=== PATIENT | male | born 1995 | race Caucasian/White ===

== ENCOUNTER 2018-11-25 01:26 | Inpatient (IN) | payer OTHER ==
[2018-11-25] MEDS ORDERED: Succinylcholine Chloride 20 MG/ML 10 ml SYRINGE FS ONE (01:34)
[2018-11-25 01:45] LABS: #Basophils 0.1 thou/uL (0.0-0.2); #Monocytes 0.4 thou/uL (0.11-0.59); #Neutrophils 4.1 thou/uL (1.40-6.50); %Basophils 1.1 % (0.0-1.0); %Eosinophils 0.4 % (0.0-10.0); %Lymphocytes 30.5 % (21.0-51.0); %Monocytes 5.5 % (0.0-10.0); %Neutrophils 62.5 % (42.0-75.0); Hemoglobin 13.1 g/dL (14.0-18.0); Mean Corpuscular HGB CONC 35.2 g/dL (32.0-36.0); Mean Corpuscular Hemoglobin 31.1 pg (27.0-31.0); Mean Corpuscular Volume 88.3 fL (78.0-98.0); Mean Platelet Volume 7.1 fL (7.4-10.4); Platelet Count 216 thou/uL (130-400); RBC Distribution Width 11.5 % (11.5-14.5); Red Blood Cell (RBC) Count 4.19 mill/uL (4.70-6.10); White Blood Cell (WBC) Count 6.6 thou/uL (4.8-10.8)
[2018-11-25] MEDS ORDERED: Midazolam HCl 2 mg/2 ml Vial ONE (01:46)
[2018-11-25] MEDS ORDERED: Fentanyl 100 MCG/2 ML VIAL ONE (01:49)
[2018-11-25] MEDS ORDERED: fentaNYL Citrate/PF 2,000 MCG in Sodium Chloride 0.9% 60 ML IV SCH (01:49)
[2018-11-25 01:52] LABS: INR-International Normal Ratio 1.1; PTT 26.7 SEC (22.9-36.1); Prothrombin Time 14.5 SEC (12.0-14.7)
[2018-11-25 02:01] LABS: ALT (SGPT) 14 U/L (8-55); AST (SGOT) 22 U/L (5-34); Albumin 4.4 g/dL (3.5-5.0); Alkaline Phosphatase 41 U/L (40-150); Anion Gap 13 mmol/L (10-20); BUN (Urea Nitrogen) 9 mg/dL (8.9-20.6); Bilirubin, Total 0.3 mg/dL (0.2-1.2); Calc. Creatinine Clearance 0 mL/min (70-130); Carbon Dioxide 22 mmol/L (22-29); Chloride 104 mmol/L (98-107); Estimated GFR-MDRD Greater than 90; Globulin 2.6 g/dL (2.4-3.5); Glucose 111 mg/dL (70-105); Sodium 136 mmol/L (136-145)
[2018-11-25 02:03] LABS: Bilirubin Negative (Negative); Blood, Urine Negative (Negative); Clarity Clear (Clear); Glucose, Urine (Dipstick) Normal (Negative); Leukocyte Negative Leu/uL (Negative); Nitrite Negative (Negative); Protein, Urine (Dipstick) Negative (Neg-Trace); Urobilinogen Normal mg/dL (Less than 2)
[2018-11-25 02:06] LABS: Potassium 2.8 mmol/L (3.5-5.1)
[2018-11-25 02:10] LABS: Acetaminophen Less than 6.0 mcg/mL (10.0-30.0); Alcohol 300 mg/dL (Less than 10); Salicylate Less than 8.0 mg/dL (15.0-30.0)
[2018-11-25 02:14] LABS: Amphetamine Not Detected (NotDetected); Barbiturates Screen Not Detected (NotDetected); Benzodiazepine Screen Not Detected (NotDetected); Cocaine Metabolite Screen Not Detected (NotDetected); Medtox Control Line Valid? VALID (VALID); Medtox Reader # READER 4; Methadone Not Detected (NotDetected); Methamphetamine Not Detected (NotDetected); Opiate Screen Not Detected (NotDetected); Oxycodone Screen Not Detected (NotDetected); Phencyclidine (PCP) Not Detected (NotDetected); THC/Cannabinoid Screen Not Detected (NotDetected); Tricyclic Screen Not Detected (NotDetected)
[2018-11-25 02:22] LABS: Actual Bicarbonate (HCO3a) 19.7 mEq/L (22-28); Analyzer IN Cardio ER; Base Excess (BEa) -3.8 mEq/L (-2.0 to +3.0); Calcium, Ionized 1.09 mmol/L (1.12-1.30); Carboxyhemoglobin (COHb) 0.1 gm% (0.0-3.0); Hemoglobin (Hb) 13.3 g/dL (14.0-18.0); O2 Tension (PaO2) 230.8 mmHg (80.0-100.0); Potassium - ABG Lab 3.22 mmol/L (3.70-5.30); pH, Arterial 7.42 (7.35-7.45)
[2018-11-25 02:26] LABS: Puncture Site LRA
[2018-11-25] MEDS ORDERED: Potassium Chloride 40 MEQ in Sodium Chloride 0.9% 250 ML 250 ML IVPB SCH (03:00)
[2018-11-25] MEDS ORDERED: Dextrose 5% in Water 1,000 ML IV PRN (03:16)
[2018-11-25] MEDS ORDERED: Ventilator Sedation Protocol 1 EACH FS SCH (03:16)
[2018-11-25] MEDS ORDERED: Dextrose 50% Abboject 50 ML SYRINGE SLOW IVP PRN (03:16)
[2018-11-25] MEDS ORDERED: Ondansetron ODT 4 MG TAB PO PRN (03:16)
[2018-11-25] MEDS ORDERED: Sodium Chloride 0.9% 1,000 ML IV SCH ×2 (03:16→12:45)
[2018-11-25] MEDS ORDERED: Propofol 1,000 MG/100 ML VIAL IV PRN (03:21)
[2018-11-25] MEDS ORDERED: DISCONTINUE PREVIOUS NARCOTIC PAIN MEDICATIONS AND BENZODIAZEPINES FS SCH (03:21)
[2018-11-25] MEDS ORDERED: Morphine 2 MG/ML SYRINGE SLOW IVP PRN (03:21)
[2018-11-25] MEDS ORDERED: Lorazepam 2 MG/ML VIAL SLOW IVP PRN (03:21)
[2018-11-25] MEDS ORDERED: Propofol BOLUS 1,000 MG/100 ML VIAL IV PRN (03:21)
[2018-11-25] MEDS ORDERED: Fentanyl BOLUS 250 ML IVPB PRN (03:21)
[2018-11-25 04:14] VITALS: BMI 24.0
--- NOTE | 2018-11-25 04:21 | CON ---
DATE OF CONSULTATION: HISTORY OF PRESENT ILLNESS: The patient is a 23-year-old male who presented to the emergency department per EMS after a fall from approximately an 8-foot balcony while at [place] with positive head injury and ETOH intoxication. The patient had positive LOC at the scene; there was also questionable seizure like activity by bystanders but this was not reported by EMS or seen during his ER course. Upon arrival to the emergency department, Pt was noted be a GCS 6 with no eye opening, no verbal response, but was moving all 4s spontaneously. CT head was done on arrival, which was notable for a small traumatic left frontal subarachnoid hemorrhage and small area of hemorrorhage along the anterior interhemispheric fissure. CT of the cervical spine was questionable for a right-sided TP fracture at C3; however, this may represent normal vascular formation. Coags and plts wnl. No reported anticoagulant use. Considering the patient's GCS status, he was intubated shortly (RSI and also given fentanyl prior to my arrival) after arrival to the emergency department. Neurosurgery was consulted for further evaluation of the patient. Family at the bedside and assist with the history. PAST MEDICAL HISTORY: The patient is otherwise healthy, reports no other medical issues PAST SURGICAL HISTORY: Ear tubes. SOCIAL HISTORY: The patient drinks socially. He has no drug use. No smoking history per family. ALLERGIES: HE HAS NO KNOWN DRUG ALLERGIES. REVIEW OF SYSTEMS: Unobtainable. LABORATORY AND DIAGNOSTIC DATA: The patient has normal platelet count, PT, and INR. His potassium slightly decreased at 2.8. His EtOH level was 300. CT noncontrast of head, there is a small acute traumatic left frontal subarachnoid hemorrhage and a small area of intracranial hemorrhage along the anterior interhemispheric fissure. CT of the cervical spine, questionable right C3 TP fracture versus vessel abnormality. CT of the cervical spine, negative for acute vascular injury. PHYSICAL EXAMINATION: CONSTITUTIONAL: The patient is currently intubated. He is not on any sedation, only received fentanyl following RSI. HEAD: Small 2-cm laceration to the posterior scalp. EYES: Pupils are pinpoint and nonreactive at this time. ENT: Endotracheal tube is in place. The patient does have positive gag reflex. NECK: C-collar is in place. No gross deformity. RESPIRATORY: Symmetric chest expansion. CARDIOVASCULAR: Regular rate and rhythm. BACK: No palpable step-offs. MUSCULOSKELETAL: No obvious deformities. NEUROLOGIC: GCS of 6. He does not open his eyes. He is currently intubated. He does withdrawal all 4s to pain. ASSESSMENT AND PLAN: This is a 23-year-old male, status post 8-foot fall from a balcony with positive head injury and CT head which is notable for a small left frontal traumatic subarachnoid hemorrhage. There is small amount of blood along the anterior interhemispheric fissure. There is no mass effect or midline shift. His alcohol is quite high at 300. At this point we do not plan on acute NS intervention. I anticipate that GCS changes are likely related to combination of concussion and substances on board. We will plan to monitor closely in the ICU and repeat his noncontrast head CT in the morning. We will leave him on the cervical collar for now, but this may be able to be cleared once he is extubated. The patient is also being followed and admitted primarily by the Trauma Service. I have discussed this plan with Dr. Rodney, who is in agreement. Job ID: [id number] MTDD
--- NOTE | 2018-11-25 05:17 | HP ---
REQUESTING PHYSICIAN: Dr. Domínguez. ATTENDING SURGEON: Dr. Ochoa. CONSULTATIONS: Neurosurgery, Dr. Rodney. HISTORY OF PRESENT ILLNESS: Patient is a 23-year-old man, who was reportedly at a local bar where he fell. The details around his fall are varying. It was noted that the patient reportedly had a fall, struck his head, had a short period of tremors, "seizure-like" activity reported by one of the bystanders. When EMS arrived, the patient's Bolin[place] Coma Scale was 10. He was brought to the emergency department originally as a level 2 trauma activation and he had a decline in his mentation. He does have a Vashti Coma Scale of 6 and was upgraded to a level 1 trauma activation and underwent rapid sequence intubation by the emergency room physician. At the time of this dictation, the mother had arrived and she was able to give us patient's pertinent medical history. ALLERGIES: NONE. CURRENT MEDICATIONS: None. PAST MEDICAL HISTORY: None. PAST SURGICAL HISTORY: Tubes in the ear. SOCIAL HISTORY: Patient is a college student. Drinks socially. No reported history of tobacco or drug use. REVIEW OF SYSTEMS: 10-point review of systems unobtainable, but mother states the patient was in his normal state of good health. PHYSICAL EXAMINATION: VITAL SIGNS: Blood pressure 122/68, heart rate 99, respirations 16, oxygen saturation 100% on mechanical ventilator, and temperature 98.8. GENERAL: The patient is currently in the emergency room. He is sedated on full mechanical ventilatory support. Patient's current [place] Coma Scale is 6, E1 V1 M4. HEENT. Head is normocephalic. There is a 2 cm laceration in the posterior scalp and that has been closed with dex. Otherwise, the remainder is unremarkable. Eyes; pupils are pinpoint and nonreactive. Ears are atraumatic without discharge. Nose is atraumatic without discharge. NG tube is in place in the right naris. Oropharynx; ET tube is in place. NECK: Has Ophelia collar in place. Trachea is midline. There is no JVD. CHEST: Clear to auscultation with good inspiratory and expiratory effort. HEART: Regular rate and rhythm. ABDOMEN: Soft, nondistended with hypoactive bowel sounds. EXTREMITIES: Neurovascularly intact x4. Pulses are 2+. Capillary refill is less than 3 seconds. There is an abrasion noted to the lateral aspect of the right knee. BACK: Atraumatic and there were no reported step-offs. LABORATORY FINDINGS: White blood cell count 6.6, hemoglobin 13.1, hematocrit 37.0, and platelets 216. Sodium 136, potassium 2.8, chloride 104, CO2 of 22, BUN 9, creatinine 0.90, and glucose 111. LFTs are unremarkable. INR 1.1, PTT 27, and PT 15. Urinalysis is unremarkable. Urine drug screen is unremarkable. Blood alcohol level is 300. IMAGING: Radiographic reports. CT of the brain without contrast shows a small amount of acute subarachnoid hemorrhage within the left inferior frontal sulci and within the inferior aspect of the anterior interhemispheric fissure. There is also noted to be minimal right posterior soft tissue swelling. CT of the C-spine without contrast shows no acute fracture or subluxation. CT of the C-spine with contrast shows no acute findings. AP chest radiograph shows no acute cardiopulmonary findings. ASSESSMENT/PLAN: 1. Status post fall. 2. Subarachnoid hemorrhage. 3. Posterior scalp laceration, repaired in the ER. 4. Respiratory failure secondary to acute alcohol intoxication and close head injury. 5. Acute alcohol intoxication. 6. Hypokalemia, electrolyte replacement started in the emergency department. PLAN: Patient will remain on the ventilator overnight. He will be reevaluated in the morning and likely be able to be extubated. Neurosurgery has scheduled followup CT exam. Patient will have IV hydration, pulmonary toilet, gastritis and mechanical VTE prophylaxis. Patient was evaluated in the trauma [facility] with Dr. Ochoa. Job ID: [id number]
[2018-11-25 07:36] LABS: Actual Bicarbonate (HCO3a) 21.4 mEq/L (22-28); Base Excess (BEa) -5.1 mEq/L (-2.0 to +3.0); CO2 Tension 45.5 mmHg (35.0-45.0); Calcium, Ionized 1.11 mmol/L (1.12-1.30); Carboxyhemoglobin (COHb) 0.8 gm% (0.0-3.0); Hemoglobin (Hb) 13.3 g/dL (14.0-18.0); Potassium - ABG Lab 4.14 mmol/L (3.70-5.30); pH, Arterial 7.29 (7.35-7.45)
[2018-11-25 07:37] LABS: Puncture Site RRA
[2018-11-25 07:38] LABS: ALV-art Gradient 2.245 (0-20)
--- NOTE | 2018-11-25 07:45 | RAD ---
EXAM: Portable chest PROVIDED CLINICAL HISTORY: Trauma COMPARISON: None FINDINGS: Cardiac and mediastinal silhouette is within normal limits. No focal consolidation, pleural fluid or pneumothorax evident. Endotracheal tube is noted, tip projecting in the region of the thoracic inlet. Enteric catheter is noted, tip overlying the left upper quadrant. Evaluation for pleural fluid or pneumothorax is limited given the supine nature of the study. IMPRESSION: No evidence for an acute cardiopulmonary process.
[2018-11-25 07:58] LABS: #Lymphocytes 3.2 thou/uL (1.20-3.40); #Monocytes 1.1 thou/uL (0.11-0.59); #Neutrophils 7.2 thou/uL (1.40-6.50); %Basophils 0.2 % (0.0-1.0); %Eosinophils 0.3 % (0.0-10.0); %Lymphocytes 27.6 % (21.0-51.0); %Monocytes 9.2 % (0.0-10.0); %Neutrophils 62.7 % (42.0-75.0); Hemoglobin 13.4 g/dL (14.0-18.0); Mean Corpuscular HGB CONC 34.7 g/dL (32.0-36.0); Mean Corpuscular Hemoglobin 30.7 pg (27.0-31.0); Mean Corpuscular Volume 88.4 fL (78.0-98.0); Mean Platelet Volume 7.8 fL (7.4-10.4); Platelet Count 210 thou/uL (130-400); RBC Distribution Width 11.7 % (11.5-14.5); Red Blood Cell (RBC) Count 4.36 mill/uL (4.70-6.10); White Blood Cell (WBC) Count 11.4 thou/uL (4.8-10.8)
--- NOTE | 2018-11-25 08:09 | CT ---
PRELIMINARY REPORT/[facility]/EMERGENCY AFTER HOURS PROCEDURE: PROCEDURE INFORMATION: Exam: CT Angiography Neck With Contrast Exam date and time: 11/25/2018 3:19 AM Clinical history: 23 years old, male; Injury or trauma; Patient HX: Level 1 trauma* 22 y/o m presents to ED via EMS transport S/P fall from height of approx 6-8 feet. Fall was "semi-witnessed" by bystanders. Bike medics on scene reported seizure-like activity after fall; Since fall, PT has not fu lly regained consciousness. TECHNIQUE: Imaging protocol: Computed tomographic angiography images of the neck with intravenous contrast using CT angiography protocol. 3D rendering: MIP reconstructed images were created and reviewed. COMPARISON: CT Cervical Spine WO Con 11/25/2018 2:00 AM FINDINGS: Tubes, catheters and devices: Endotracheal tube tip is in the upper thoracic trachea. Partially visualized enteric tube. VASCULATURE: Right common carotid artery: Unremarkable. No stenosis. No dissection or occlusion. Right internal carotid artery: Unremarkable extracranial segment. No stenosis. No dissection or occlusion. Right external carotid artery: Unremarkable. No occlusion or stenosis of the origin. Right vertebral artery: Unremarkable. No stenosis. No dissection or occlusion. Left common carotid artery: Unremarkable. No stenosis. No dissection or occlusion. Left internal carotid artery: Unremarkable extracranial segment. No stenosis. No dissection or occlusion. Left external carotid artery: Unremarkable. No occlusion or stenosis of the origin. Left vertebral artery: Unremarkable. No stenosis. No dissection or occlusion. Aorta: Conventional thoracic aortic arch great vessel branching anatomy. NECK: Sinuses: Minimal ethmoid sinus disease. Nasopharynx: Rightward deviation of the bony nasal septum. Bones/joints: No acute fracture. Soft tissues: Normal. No significant soft tissue swelling. IMPRESSION: No acute abnormality. COMMENT: Reference per NASCET criteria for degree of stenosis: Mild: less than 50% stenosis. Moderate: 50- 69% stenosis. Severe: 70-94% stenosis. Near occlusion: 95-99% stenosis. Thank you for allowing us to participate in the care of your patient. Dictated and Authenticated by: Mauro Hatfield MD 11/25/2018 3:33 AM Central Time ([place] & [place]) FINAL REPORT: CT ANGIOGRAM GREAT VESSELS NECK WITH IV CONTRAST AND 3D MIP RECONSTRUCTIONS: PROVIDED CLINICAL HISTORY: Trauma. COMPARISON: None FINDINGS/IMPRESSION: Agree with the preliminary interpretation given by CAROL. Transcribed Date/Time: 11/25/2018 8:25 AM
--- NOTE | 2018-11-25 08:13 | CT ---
PRELIMINARY REPORT/[facility]/EMERGENCY AFTER HOURS PROCEDURE: Addendum created by Mauro Hatfield MD on 11/25/2018 2:18 AM Central Time ([place] & [place]) THIS REPORT CONTAINS FINDINGS THAT MAY BE CRITICAL TO PATIENT CARE. The findings were verbally communicated via telephone conference with DAVID RIVERA at 2:16 AM CDT on 11/25/2018 . The findings were acknowledged and understood. Initial Report created on 11/25/2018 2:12 AM Central Time ([place] & [place]) PROCEDURE INFORMATION: Exam: CT Head Without Contrast Exam date and time: 11/25/2018 2:00 AM Clinical history: 23 years old, male; Injury or trauma; Initial encounter; Blunt trauma (contusions o r hematomas); With loss of consciousness; Not specified; Patient HX: *level 1 trauma* 23 y/o m presents to ED via EMS transport S/P fall from height of approx 6-8 feet while PT was at [facility]. Fall was "semi-witnessed" by bystanders. Bike medics on scene reported seizure-like activity after fall; Since fall, PT has not fully regained consciousness. On EMS assessment, PT has head injury with bleeding, crepitus also noted. C-spine precautions placed boat captain. En route, PT would withdraw to pain; He would not open eyes, respond verbally, nor follow commands. PT was combative for EMS TECHNIQUE: Imaging protocol: Computed tomography of the head without contrast. COMPARISON: No relevant prior studies available. FINDINGS: Tubes, catheters and devices: Partially visualized support tubing within the oral cavity. Brain: Small amount of acute subarachnoid hemorrhage within the left inferior frontal sulci and withi n the inferior aspect of the anterior interhemispheric fissure. No mass or infarction. Ventricles: Normal. Bones/joints: Normal. Sinuses: Minimal ethmoid sinus disease. Mastoid air cells: Normal as visualized. Soft tissues: Minimal right posterior soft tissue swelling. IMPRESSION: 1. Small amount of acute subarachnoid hemorrhage within the left inferior frontal sulci and within th e inferior aspect of the anterior interhemispheric fissure. Recommend followup. 2. Minimal right posterior soft tissue swelling. Thank you for allowing us to participate in the care of your patient. Dictated and Authenticated by: Mauro Hatfield MD 11/25/2018 2:12 AM Central Time ([place] & [place]) FINAL REPORT: CT BRAIN: PROVIDED CLINICAL HISTORY: Head injury, seizure. COMPARISON: None. FINDINGS/IMPRESSION: Agree with the preliminary interpretation given by VRJOSE. Transcribed Date/Time: 11/25/2018 8:32 AM
--- NOTE | 2018-11-25 08:20 | CT ---
PRELIMINARY REPORT/[facility]/EMERGENCY AFTER HOURS PROCEDURE: Addendum created by Mauro Hatfield MD on 11/25/2018 2:43 AM Central Time ([place] & [place]) ADDENDUM: Referring facility requested further evaluation of cervical spine CT for possible fracture on image 3 0. On image 30, there is a well-corticated lucency within the right C2 interlaminar, compatible with vascular channel. As described in initial report, there is no acute fracture or malalignment of the cervical spine. Initial Report created on 11/25/2018 2:16 AM Central Time ([place] & [place]) PROCEDURE INFORMATION: Exam: CT Cervical Spine Without Contrast Exam date and time: 11/25/2018 2:00 AM Clinical history: 23 years old, male; Injury or trauma; Initial encounter; Blunt trauma; Patient HX: *level 1 trauma* 23 y/o m presents to ED via EMS transport S/P fall from height of approx 6-8 feet while PT was at [facility]. Fall was "semi-witnessed" by bystanders. Bike medics on scene reported sei zure-like activity after fall; Since fall, PT has not fully regained consciousness. On EMS assessment, PT has head injury with bleeding, crepitus also noted. C-spine precautions placed tugboat captain. En route, PT would withdraw to pain; He would not open eyes, respond verbally, nor follow commands. PT was combative for EMS TECHNIQUE: Imaging protocol: Computed tomography images of the cervical spine without contrast. COMPARISON: No relevant prior studies available. FINDINGS: Tubes, catheters and devices: Endotracheal and enteric tubes. Vertebrae: No acute fracture or malalignment. Discs/Spinal canal/Neural foramina: No spinal stenosis. No neural foraminal narrowing. Soft tissues: Normal. Lungs: Lung apices are normal. IMPRESSION: No acute fracture or malalignment. Thank you for allowing us to participate in the care of your patient. Dictated and Authenticated by: Mauro Hatfield MD 11/25/2018 2:16 AM Central Time ([place] & [place]) FINAL REPORT: CT CERVICAL SPINE: PROVIDED CLINICAL HISTORY: Trauma. COMPARISON: None. FINDINGS/IMPRESSION: Agree with the preliminary interpretation given by CAROL. Transcribed Date/Time: 11/25/2018 8:35 AM
[2018-11-25 08:21] LABS: Anion Gap 14 mmol/L (10-20); BUN (Urea Nitrogen) 6 mg/dL (8.9-20.6); Calc. Creatinine Clearance 145 mL/min (70-130); Calcium 7.9 mg/dL (7.8-10.44); Carbon Dioxide 20 mmol/L (22-29); Chloride 108 mmol/L (98-107); Estimated GFR-MDRD Greater than 90; Glucose 85 mg/dL (70-105); Phosphorus 4.2 mg/dL (2.3-4.7); Potassium 4.1 mmol/L (3.5-5.1); Sodium 138 mmol/L (136-145)
[2018-11-25] MEDS ORDERED: Famotidine/PF 20 mg/2ml Vial SLOW IVP SCH (09:00)
[2018-11-25 09:11] LABS: Actual Bicarbonate (HCO3a) 20.2 mEq/L (22-28); Base Excess (BEa) -3.8 mEq/L (-2.0 to +3.0); CO2 Tension 33.4 mmHg (35.0-45.0); Calcium, Ionized 1.08 mmol/L (1.12-1.30); Carboxyhemoglobin (COHb) 0.8 gm% (0.0-3.0); Hemoglobin (Hb) 13.5 g/dL (14.0-18.0); O2 Tension (PaO2) 127.1 mmHg (80.0-100.0); Potassium - ABG Lab 3.54 mmol/L (3.70-5.30)
[2018-11-25 09:15] LABS: Puncture Site RBA
[2018-11-25] MEDS: Ondansetron PF 4 MG/2 ML Vial IVP PRN ×2 (10:31→16:16)
--- NOTE | 2018-11-25 10:41 | CT ---
EXAM: CT Brain WO Con PROVIDED CLINICAL HISTORY: Subarachnoid hemorrhage COMPARISON: 11/25/2018 2:01 AM FINDINGS: The ventricular system remains nondilated. Combination of hemorrhagic contusion and posttraumatic sub arachnoid hemorrhage involving the left frontal region as well as a small amount of subarachnoid hemorrhage in the posterior left parietal region.. Degree of hemorrhage is similar to prior. There is a small amount of subdural hemorrhage adjacent to the falx right of midline near the vertex that was not present on prior. There is no shift of the midline structures. The extracranial soft tissues and osseous structures appear unremarkable. IMPRESSION: Intracranial hemorrhage as above.
--- NOTE | 2018-11-25 12:28 | CON ---
DATE OF CONSULTATION: 11/25/2018 The patient is a 23-year-old man with alcohol use, who had a fall yesterday. He was initially poorly responsive, although moving all 4s and ultimately was intubated. He is currently extubated, arousable, and interactive, although he is slightly somnolent. He is nonfocal. Head CT revealed left frontal contusion and traumatic subarachnoid hemorrhage as well as some potential right frontal contusion. A followup head CT is planned for this morning. Following that scan, we can make decisions on advancing diet and mobilizing. No plans for neurosurgical intervention at this time. Job ID: [id number]
[2018-11-25] MEDS ORDERED: ISOVUE-370 76%-LOCM 1 ML ONE (12:46)
--- NOTE | 2018-11-25 12:50 | PRG ---
DATE OF SERVICE: 11/25/2018 SUBJECTIVE: Mr. Acuna is extubated. He is awake. He follows instructions. He is oriented to person, place, and time. He is hemodynamically and neurologically stable. OBJECTIVE: VITAL SIGNS: He is afebrile, and his vital signs are stable. ABDOMEN: Soft. CHEST: Clear. HEART: Regular rate. NEURO: Intact with command following. No obvious upper or lower extremity deformities. IMAGING STUDIES: Followup CT scan today reveals a stable intracranial hemorrhage. ASSESSMENT: Left frontal contusion and traumatic subarachnoid hemorrhage. PLAN: Doing well status post extubation. Suspect he will be moved to the floor later on today, then his Garcia can be removed. We will hold off on clearing his C-spine until he is more awake still, but certainly marked improvement from last night. Job ID: [id number]
--- NOTE | 2018-11-25 12:56 | PRG ---
DATE OF SERVICE: 11/25/2018 SUBJECTIVE: Mr. Acuna is a 23-year-old male who came in yesterday after a fall and struck the head at a bar yesterday. The patient sustained a small subarachnoid hemorrhage. He was intubated and on ventilation overnight. This morning, the patient is aware and alert, follows commands and shows no signs of neurology deficits. GCS 10 on intubation. The patient's vital signs have been stable. Urine adequate. ABG shows metabolic acidosis. Consult with Dr. Rousseau and decided to put him on a CPAP trial and his ABG 30 minute later, the pH is 7.39. The patient could continue aware and alert. GCS [address] Rousseau decided to extubate him. Postop extubation, the patient was doing good. He is talking clearly. Vital signs have been stable. OBJECTIVE: GENERAL: The patient is lying down in bed, comfortable with no acute distress. He talks clearly in full sentences. GCS 15. VITAL SIGNS: Temperature 98, heart rate 62, blood pressure 110/66, and O2 saturation is 100 on 2 L cannula. LUNGS: Clear bilaterally. HEART: Regular rate and rhythm. ABDOMEN: Soft, nondistended. EXTREMITIES: Neurovascularly intact x4. The patient has normal range of motion x4. NEUROLOGIC: No focal neurology deficits. ASSESSMENT: 1. Status post fall. 2. Subarachnoid hemorrhage, stable, on second CT scan this morning. 3. Alcohol intoxication, resolved. 4. Hypokalemia. 5. Electrolyte replacement. PLAN: We will continue observation in ICU until later today. Continue neuro check q.2 hours. The patient will be working with PT and OT tomorrow. Job ID: [id number]
[2018-11-25] MEDS ORDERED: Acetaminophen 1,000 MG in Premix Bag 1 BAG IVPB PRN (16:53)
[2018-11-25] MEDS ORDERED: Scopolamine 1.5 mg/72 hour Patch TD SCH (21:30)
[2018-11-26] MEDS: Acetaminophen 500 MG TAB PO SCH ×3 (00:20→06:35)
--- NOTE | 2018-11-26 01:01 | PRG ---
DATE OF SERVICE: 11/26/2018 SUBJECTIVE: The patient is currently on the surgical floor. He has been moved up from the critical care unit. The patient last night was admitted after sustaining a fall and heavy EtOH intoxication. The patient ended up requiring rapid sequence intubation to protect his airway after he had a marked decline in his mentation. Overnight, he did well on the ventilator. He was able to be extubated this morning. Throughout the day, the patient has felt better. He has a slight headache. Does complain of some dizziness when moving quickly. He is tolerating liquids at this time. The patient ambulated with assistance to the bathroom. OBJECTIVE: VITAL SIGNS: Stable. The patient is afebrile. GENERAL: The patient is resting comfortably in bed on the surgical floor. He is awake, alert, and oriented. Vashti Coma Scale is 15. HEENT: The patient has dex to his occiput that are clean, dry, and intact. Remainder of his HEENT is unremarkable. LUNGS: Clear to auscultation with good inspiratory and expiratory effort. HEART: Regular rate and rhythm. ABDOMEN: Soft, flat, nontender with active bowel sounds. EXTREMITIES: Neurovascularly intact x4. ASSESSMENT: 1. Status post fall. 2. Traumatic subarachnoid hemorrhage, stable. 3. Scalp laceration, repaired. 4. Alcohol intoxication, resolved. PLAN: Plan will be to continue supportive care. We will do a scopolamine patch for the patient's nausea and dizziness. Nonnarcotic pain medications. Advance his diet as tolerated. Re-evaluate tomorrow. The patient does have family support. The patient will likely be able to be discharged home tomorrow if we can confirm a safe environment. Job ID: [id number]
[2018-11-26] MEDS: traMADol HCl 50 MG TAB PO PRN ×2 (07:41→21:08)
[2018-11-26] MEDS: Ondansetron PF 4 MG/2 ML Vial IVP PRN ×2 (09:02→22:15)
[2018-11-26] MEDS ORDERED: Acetaminophen 1,000 MG in Premix Bag 1 BAG IVPB PRN (09:03)
--- NOTE | 2018-11-26 09:29 | PRG ---
DATE OF SERVICE: 11/26/2018 SUBJECTIVE: The patient is day #2, status post fall with significant head injury; bifrontal contusions, left greater than right and small amount of blood along the interhemispheric fissure. His repeat CT scan was stable. He continues to struggle with headaches, nausea, and has had a difficult time tolerating much p.o. or mobilizing at this point. He has been unable to work with physical therapy yet. OBJECTIVE: On exam this morning, the patient awakens easily. He is oriented x4. His pupils are equal and reactive to light. His wound repair by dex was clean, dry, and intact. He has free active range of motion of all extremities. No focal motor weakness. No neurologic deficits are appreciated on my exam. PLAN: The patient will continue to benefit from advancing his diet and mobilizing with the assistance of Physical Therapy. Once these things are improved, he could be discharged to home and we will arrange four-week followup with a repeat head CT at that time. The patient should remain off any anticoagulants and I have discussed this with the patient and his family. Neurosurgery will go ahead and sign off. Please reach out to us for additional questions or concerns. Job ID: [id number]
[2018-11-26] MEDS: Sodium Chloride 0.9% 1,000 ML IV SCH ×2 (09:41→17:54)
[2018-11-26] MEDS: Pantoprazole 40 MG VIAL IVP SCH (09:42)
[2018-11-26] MEDS ORDERED: Gabapentin 300 MG CAP PO SCH (09:45)
[2018-11-26] MEDS: Cyclobenzaprine 10 MG TAB PO PRN ×2 (09:53→21:21)
[2018-11-26] MEDS ORDERED: Acetaminophen 650 MG Suppository PR PRN (10:15)
--- NOTE | 2018-11-26 12:56 | PRG ---
DATE OF SERVICE: 11/26/2018 Mr. Acuna is sleeping now, but he has had a lot of nausea and severe headache. He was seen by Neurosurgery today, who recommended supportive care. No further plans for them. I had a conversation with the mother about his head injury and subarachnoid blood and the likely continued sequela of that. He will need to stay here with supportive measures until his headache and nausea are improved. She was asking questions about classes in his final semester, and we will just have to see how the next several days go in terms of him finishing the semester. Dr. Abarcaju to take over his care tomorrow with the trauma team. Job ID: [id number]
[2018-11-26] MEDS: Acetaminophen 1,000 MG in Premix Bag 1 BAG IVPB SCH ×2 (14:13→17:55)
[2018-11-26] MEDS ORDERED: FLUoxetine HCl 20 MG CAP PO SCH (18:45)
[2018-11-26] MEDS: Gabapentin 300 MG CAP PO SCH (21:08)
[2018-11-26] MEDS: Promethazine 25 MG TAB PO PRN (23:57)
[2018-11-26] MEDS: HYDROcodone/Acetaminophen 7.5/325 mg Tablet PO PRN (23:57)
[2018-11-27] MEDS: Morphine 2 MG/ML SYRINGE SLOW IVP PRN ×2 (01:00→09:42)
[2018-11-27] MEDS: Sodium Chloride 0.9% 1,000 ML IV SCH ×3 (02:25→11:49)
--- NOTE | 2018-11-27 02:55 | PRG ---
DATE OF SERVICE: 11/27/2018 SUBJECTIVE: The patient remains on the surgical floor. He is status post a fall when he sustained a subarachnoid hemorrhage. The patient also suffered from a blood alcohol level of 300. He does not have any problems with respirations regarding being intubated on his admission. The patient does still have significant headaches and bouts of nausea with an occasional emesis. For the most part he is able to tolerate liquids, he was evaluated by Neurosurgery today who felt this all the sequela of his close head injury and postconcussive syndrome. We will continue to work on getting his headache and nausea under control. The patient has been out of bed today. PHYSICAL EXAMINATION: VITAL SIGNS: Stable. The patient is afebrile. GENERAL: The patient is resting comfortably in bed. NEUROLOGIC: He appears to have some photophobia, but when the lights are off, he appears more comfortable. I reminded him to ensure that he has his head of bed up to at least 30 degrees and that may help with his headaches. Also, slow head movements to avoid any dizziness. His [place] Coma Scale is 14, -1 for eye opening. RESPIRATORY: Respirations appear effortless. EXTREMITIES: The patient is moving all 4 extremities. ASSESSMENT/PLAN: 1. Status post fall. 2. Traumatic subarachnoid hemorrhage, stable. 3. Scalp laceration, repaired, stable. 4. Alcohol intoxication, resolved. PLAN: Plan will be to continue supportive care. We will add [place] and Phenergan to his headache and nausea regimen and continue to monitor. Once the patient's nausea and headaches are under control, he will likely be discharged home with family. Job ID: [id number]
[2018-11-27] MEDS: HYDROcodone/Acetaminophen 7.5/325 mg Tablet PO PRN (07:41)
[2018-11-27] MEDS: Gabapentin 300 MG CAP PO SCH (07:42)
[2018-11-27] MEDS: FLUoxetine HCl 20 MG CAP PO SCH (07:43)
[2018-11-27] MEDS: Pantoprazole 40 MG VIAL IVP SCH (07:44)
[2018-11-27] MEDS ORDERED: Acetaminophen 325 MG TAB PO SCH (07:45)
[2018-11-27] MEDS: Ondansetron PF 4 MG/2 ML Vial IVP PRN (09:42)
[2018-11-27] MEDS: Acetaminophen 500 MG TAB PO SCH ×2 (12:24→18:15)
[2018-11-27] MEDS: traMADol HCl 50 MG TAB PO PRN ×2 (12:25→18:15)
[2018-11-27] MEDS ORDERED: HYDROcodone/Acetaminophen 7.5/325 mg Tablet PO SCH (13:00)
--- NOTE | 2018-11-27 14:47 | PRG ---
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 The patient sustained a small subarachnoid hemorrhage. His repeat brain CT was stable. He has still not improve very much due to he developed dysphagia, vomiting, and nauseated multiple times yesterday. The patient is put on IV fluids and pain medication is suggested. This morning, the patient reports doing a little bit better. His speech is clear. His vital signs have been stable. OBJECTIVE: GENERAL: The patient is lying down in bed with a few excruciating headache around 8 to 9/10, but he is alert and awake. GCS 15. VITAL SIGNS: Temperature 98, heart rate 49, respiratory rate 16, O2 saturation 94% on room air, and blood pressure 110/67. LUNGS: Clear bilaterally. HEART: Regular rate and rhythm. ABDOMEN: Soft and nondistended. EXTREMITIES: Neurovascularly intact x4. NEUROLOGIC: No focal neurology deficits. ASSESSMENT: 1. Status post ground level fall. 2. Subarachnoid hemorrhage, stable. 3. Alcohol intoxication, resolved. PLAN: Plan will be continue supportive care. Continue pain control. Continue non-pharmacology DVT prophylaxis. The patient will be able to go home after he can tolerate diet and mobilize well per Neurosurgery. Job ID: [id number]
[2018-11-27] MEDS ORDERED: Gabapentin 300 MG CAP PO SCH (15:00)
[2018-11-27] MEDS: Pregabalin 50 MG CAP PO SCH ×2 (15:30→20:07)
[2018-11-27] MEDS ORDERED: Pregabalin 75 MG CAP PO SCH (21:00)
--- NOTE | 2018-11-27 23:11 | PRG ---
DATE OF SERVICE: 11/27/2018 SUBJECTIVE: The patient remains on the surgical floor. He is status post fall when he sustained a subarachnoid hemorrhage. The patient was also noted to have acute alcohol intoxication with a blood alcohol level of 300. Today, the patient had a rough morning, but has made significant improvement throughout the day. The patient was even able to tolerate diet. He has been ambulating easier and his headache is markedly improved. The patient still has some nausea, but has not had any vomiting. The patient's chief complaint is fullness in the back of his head, which was explained to him again that this is consistent with his frontal injury. OBJECTIVE: VITAL SIGNS: Stable. The patient is afebrile. GENERAL: The patient is resting comfortably in bed. He does appear markedly improved compared to my visit with him last night. RESPIRATORY: Appears effortless and nonlabored. EXTREMITIES: Neurovascularly intact x4. NEUROLOGIC: The patient is alert oriented x3. [place] Coma Scale is 15. ASSESSMENT/PLAN: 1. Status post fall. 2. Traumatic subarachnoid hemorrhage, stable. 3. Scalp laceration, repaired, stable. 4. Acute alcohol intoxication, resolved. 5. Headache and nausea secondary to #2. PLAN: Plan will be to continue supportive care. The patient will be discharged once he is tolerating a diet. His pain is consistently controlled. The patient will follow up in one week with Neurosurgery, sooner as needed. The patient may follow up with us after discharge for staple removal or possibly our colleagues in Neurosurgery may remove them at his followup visit with them. Job ID: [id number]
[2018-11-28] MEDS: Acetaminophen 500 MG TAB PO SCH ×3 (00:32→11:20)
[2018-11-28] MEDS: Sodium Chloride 0.9% 1,000 ML IV SCH (00:35)
[2018-11-28] MEDS: traMADol HCl 50 MG TAB PO PRN (07:02)
[2018-11-28] MEDS ORDERED: Bisacodyl 10 MG SUPP PR SCH (09:00)
[2018-11-28] MEDS: Promethazine 25 MG TAB PO PRN (09:07)
[2018-11-28] MEDS: Pregabalin 50 MG CAP PO SCH ×2 (09:10→15:20)
[2018-11-28] MEDS: Cyclobenzaprine 10 MG TAB PO PRN (09:10)
[2018-11-28] MEDS: FLUoxetine HCl 20 MG CAP PO SCH (09:11)
[2018-11-28] MEDS: Pantoprazole 40 MG VIAL IVP SCH (09:12)
[2018-11-28] MEDS ORDERED: Morphine 2 MG/ML SYRINGE SLOW IVP PRN (09:34)
[2018-11-28] MEDS ORDERED: Morphine 4 MG/ML VIAL ONE (09:37)
[2018-11-28 11:52] VITALS: BP 128/88; TEMP 97.8
--- NOTE | 2018-11-29 01:59 | DIS ---
DATE OF ADMISSION: 11/25/2018 DATE OF DISCHARGE: 11/28/2018 ADMISSION DIAGNOSES: Fall, frontal contusion and subarachnoid hemorrhages, posterior scalp laceration, acute respiratory failure, acute alcohol intoxication. DISCHARGE DIAGNOSES: Fall, frontal contusion and subarachnoid hemorrhages, posterior scalp laceration, acute respiratory failure, acute alcohol intoxication. CONSULTING PHYSICIAN: Dr. Rodney of Neurosurgery. PROCEDURES PERFORMED: None. HOSPITAL COURSE: The patient is a 23-year-old male, who presented to the emergency department via EMS after falling at a night club while intoxicated. Upon evaluation in the emergency department, the patient was upgraded to a level 1 trauma and intubated due to decline in GCS. CT scans demonstrated the patient had frontal contusion and subarachnoid hemorrhages and a scalp laceration. Scalp laceration was stapled in the ED. He was admitted to the ICU and subsequently later extubated. He continued to have persistent concussive symptoms including nausea, vomiting, and headache. At the time of discharge, he was tolerating regular diet. Concussive symptoms were controlled with p.o. pain medications, as well as p.o. antinausea medications. He was restarted on his home medications as well as tolerating regular diet, ambulating without difficulty. He is voiding without issues. Mother at the bedside reported that the patient will be going home with her for closer observation and care. DISCHARGE DISPOSITION: Home. DISCHARGE CONDITION: Satisfactory. PHYSICAL EXAMINATION: VITAL SIGNS: Temperature 98.2, pulse 50, respirations 16, oxygen saturation 96% on room air, and blood pressure 123/74. GENERAL: Well-appearing young male, sitting up in bed with no signs of acute distress. PULMONARY: Equal chest rise and fall. Clear breath sounds bilaterally. No signs of acute respiratory distress. CARDIAC: Regular rate and rhythm. No murmurs, gallops, or rubs. GASTROINTESTINAL: Abdomen is soft, nontender, and nondistended. EXTREMITIES: 2+ pulses in all extremities. No significant swelling noted. Gross motor and sensation are intact. NEURO: GCS is 15. No focal neurological deficits. DISCHARGE INSTRUCTIONS: The patient was discharged home. Activity as tolerated. Regular diet. DISCHARGE MEDICATIONS: Include: 1. Flexeril. 2. Zofran. 3. Lyrica. 4. Scopolamine patch. 5. Tramadol. 6. Prozac. FOLLOWUP APPOINTMENTS: The patient is to follow up with Dr. Rodney in 3 to 4 weeks. He is to follow up with his PCP in 7 to 10 days for staple removal. This is merely a summary of the patient's hospitalization. For full details, please see his medical record in its entirety. Job ID: [id number]
== END 2018-11-28 15:01 | disposition home or self-care (01) | DRG 82 ==
LOC: ERS 01:26 → CCU 03:38 → SJJU 13:14
PROVIDERS: ADMIT Surgery; ATTEND Surgery
PROC: 0BH17EZ Insertion of Endotracheal Airway into Trachea, Via Natural or Artificial Opening (ICD-10-PCS; principal; 2018-11-25)
PROC: 5A1935Z Respiratory Ventilation, Less than 24 Consecutive Hours (ICD-10-PCS; 2018-11-25)
PROC: 0HQ0XZZ Repair Scalp Skin, External Approach (ICD-10-PCS; 2018-11-25)
DX: S06.6X9A Traumatic subarachnoid hemorrhage with loss of consciousness of unspecified duration, initial encounter (principal); J96.00 Acute respiratory failure, unspecified whether with hypoxia or hypercapnia; E87.2 Acidosis; R40.2431 Glasgow coma scale score 3-8, in the field [EMT or ambulance]; W13.0XXA Fall from, out of or through balcony, initial encounter; Y92.89 Other specified places as the place of occurrence of the external cause; F10.129 Alcohol abuse with intoxication, unspecified; S01.01XA Laceration without foreign body of scalp, initial encounter; E87.6 Hypokalemia; Y90.8 Blood alcohol level of 240 mg/100 ml or more; F07.81 Postconcussional syndrome; R40.2414 Glasgow coma scale score 13-15, 24 hours or more after hospital admission
CPT/HCPCS: 36415; 70450; 70498; 71045; 72125; 80053; 80306; 80307; 81003; 82805; 83735; 84100; 85025; 85610; 85730; 86850; 86900; 86901; C9113; G0390; J0131; J2250; J2270; J2405; J2704; J3010; J3480; J3490; J7050; Q0162; Q0169; Q9966; S0028

== ENCOUNTER 2018-12-28 14:03 | Outpatient (CLI) | payer OTHER ==
--- NOTE | 2018-12-28 14:29 | CT ---
CT Brain WO Con: 12/28/2018 12:00 AM CLINICAL HISTORY: Subarachnoid hemorrhage, follow-up. COMPARISON: 11/25/2018 FINDINGS: Hemorrhage: Resolution of prior intracranial hemorrhage. Ventricular system: Normal in size and morphology for the patient's age. Cerebral parenchyma: Interval development of posttraumatic inferior left frontal lobe encephalomalaci a. Midline shift: None. Mass: No intra-axial mass Calvarium: Normal. 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 Visualized Paranasal sinuses: Clear. IMPRESSION: No acute intracranial abnormalities. Resolution of prior intracranial hemorrhage, with residual inferior left frontal lobe encephalomalaci a.
== END 2018-12-28 14:04 | disposition home or self-care (01) ==
LOC: TBSIIMAG 14:03
PROVIDERS: ATTEND Neurological Surgery
DX: S06.6X9D Traumatic subarachnoid hemorrhage with loss of consciousness of unspecified duration, subsequent encounter (principal); G93.89 Other specified disorders of brain
CPT/HCPCS: 70450